=== PATIENT | male | born 1990 | race Caucasian/White ===

== ENCOUNTER 2022-04-24 08:24 | Emergency (ER) | payer OTHER ==
[~2022-04-24] VITALS: Ht 170 cm; Wt 62.0 kg
--- NOTE | 2022-04-24 09:09 | ED Abdominal Pain ---
General Chief Complaint: Abdominal/GI Problems Stated Complaint: NAUSEA/LOWER ABD PAIN Nursing Triage Note: PT CO OF R LOWER ABD PAIN FOR APPROX 2 WEEKS, PT STATES HAS INGUINAL HERNIAS X2. PT STATES ALSO HAS FREQUENT KIDNEY STONES PASSED SOME LAST WEEK. PT STATES HAS NAUSEA AND CONSTIPATION Source of Information: Patient Exam Limitations: No Limitations History of Present Illness Date Seen by Provider: Apr 24, 2022 Time Seen by Provider: 09:08 Initial Comments Patient is a 31-year-old male who presents to the emergency room with a chief complaint of "my hernias are hurting me". He states he has had pain in the suprapubic region for about the last week. He has not taken any medications voluntarily, his gave him some Tylenol last night which did not help. He also complains of constipation. He states he has not had a "good" bowel movement in the last week. No blood. No burning with urination, no penile discharge. No testicular pain. The pain does not radiate. 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 He states [place] and had previously been told that he had hernias. He states he has had ultrasounds and has been examined by a surgeon. No local care. No abdominal surgeries. He has been a little bit nauseous. All other review of systems reviewed and negative except as stated. Timing/Duration: 1 Week Severity/Quality: Moderate, Aching Location: Suprapubic Radiation: No Radiation Associated Symptoms: Other (constipation) Allergies and Home Medications Allergies Coded Allergies: No Known Drug Allergies (Unverified , 04/24/22) Patient Home Medication List Home Medication List Reviewed: Yes Review of Systems Review of Systems Constitutional: see HPI Respiratory: No Symptoms Reported Cardiovascular: No Symptoms Reported Gastrointestinal: Abdominal Pain, Constipated, Nausea Genitourinary: No Symptoms Reported Musculoskeletal: no symptoms reported Skin: no symptoms reported Psychiatric/Neurological: No Symptoms Reported All Other Systems Reviewed Negative Unless Noted: Yes Physical Exam Vital Signs Vital Signs - First Documented 04/24/22 08:40 Temp 36.6 Pulse 66 Resp 18 B/P (MAP) 103/70 (81) Pulse Ox 98 Capillary Refill : Less Than 3 Seconds Height/Weight/BMI Height: '" Weight: lbs. oz. kg; 21.00 BMI Method: General Appearance: WD/WN, thin Respiratory: lungs clear, normal breath sounds, no respiratory distress, no accessory muscle use Cardiovascular: regular rate, rhythm Gastrointestinal: soft, tenderness (Mild suprapubic tenderness, no inguinal lymphadenopathy, no palpable masses in the inguinal canals bilaterally.) Genital/Rectal: other (Patient is examined in the standing position. No testicular swelling, tenderness or fullness. No palpable direct inguinal hernias on either side. No penile discharge. No lesions, rashes) Extremities: normal range of motion, non-tender, normal inspection, no pedal edema Male: normal genitalia Neurologic/Psychiatric: alert, normal mood/affect, oriented x 3 Skin: normal color, warm/dry Progress/Results/Core Measures Results/Orders Lab Results Laboratory Tests Test 04/24/22 08:48 Range/Units Urine Color YELLOW Urine Clarity CLEAR Urine pH 6.5 5-9 Urine Specific [place] 1.010 L 1.016-1.022 Urine Protein NEGATIVE NEGATIVE Urine Glucose (UA) NEGATIVE NEGATIVE Urine Ketones NEGATIVE NEGATIVE Urine Nitrite NEGATIVE NEGATIVE Urine Bilirubin NEGATIVE NEGATIVE Urine Urobilinogen 0.2 < = 1.0 MG/DL Urine Leukocyte Esterase NEGATIVE NEGATIVE Urine RBC (Auto) 3+ H NEGATIVE Urine RBC 25-50 H /HPF Urine WBC 0-2 /HPF Urine Squamous Epithelial Cells RARE /HPF Urine Crystals NONE /LPF Urine Bacteria TRACE /HPF Urine Casts NONE /LPF Urine Mucus NEGATIVE /LPF Urine Culture Indicated NO My Orders Orders - HAY SCHUSTER MD Ua Culture If Indicated (04/24/22 09:24) Ketorolac Injection (Toradol Injection) (04/24/22 09:30) Medications Given in ED Current Medications Medications Dose Ordered Sig/Fernanda Route Start Time Stop Time Status Last Admin Dose Admin Ketorolac Tromethamine 30 mg ONCE ONCE IM 04/24/22 09:30 04/24/22 09:31 DC 04/24/22 09:35 30 MG Vital Signs/I&O 04/24/22 08:40 Temp 36.6 Pulse 66 Resp 18 B/P (MAP) 103/70 (81) Pulse Ox 98 Blood Pressure Mean: 81 Progress Progress Note : Time: 10:29 Progress Note Patient reassessed, pain down to a "4" after Toradol. He does have hematuria. Patient states he has a history of kidney stones, he thinks he passed 1 last week because he states that he heard 1 "hit the toilet". The last time he has had an evaluation for kidney stone has been "years ago". I offered him a couple of options, stay and get some blood chemistries checked as well as a CT of the abdomen and pelvis to look for where the kidney stone might be or treat him as renal colic with pain meds, Flomax and reevaluate him with his primary care. Patient elects to go home as he is worked all night. He states his pain is tolerable. No clinical or objective findings to warrant emergent continued eval here in the emergency department. He is given good return precautions. His vital signs are stable. He verbalized agreement with the plan of care. All questions are sought and answered. Patient is stable for discharge. Departure Impression Primary Impression: Hematuria Qualified Codes: R31.9 - Hematuria, unspecified Additional Impressions: Abdominal pain Qualified Codes: R10.9 - Unspecified abdominal pain History of kidney stones Disposition: HOME, SELF-CARE Condition: Stable Departure-Patient Inst. Decision time for Depature: 10:31 Referrals: [facility]/DARREL SCHMIDT,LOCAL PHYSICIAN (PCP) Primary Care Physician Patient Instructions: Renal Colic (DC) Add. Discharge Instructions: Drink plenty of fluids to stay well-hydrated. Take mhtp-ded-lwhgfsh ibuprofen 3 tablets which is 600 mg every 6 hours with food as needed for pain. Flomax 0.4 mg every night to help urinary flow. Hydrocodone 5 mg 1 every 6 hours as needed for more severe pain. If you have to take hydrocodone routinely you need to be on a stool softener daily as it can cause severe constipation. Do not drive and take hydrocodone. If you develop a fever, nausea vomiting, burning with urination or worsening pain please come back to the emergency department for reevaluation. Please follow-up with [facility]. Scripts Hydrocodone/Acetaminophen (Hydrocodone-Acetamin 5-325 mg) 5 Mg-325 Mg Tablet 1 TAB PO Q6H PRN for PAIN-MODERATE (5-7), #10 TAB Prov: HAY SCHUSTER MD 04/24/22 Tamsulosin HCl (Flomax) 0.4 Mg Cap 0.4 MG PO HS for 14 Days, #14 CAP Prov: HAY SCHUSTER MD 04/24/22 Work/School Note: Work Release Form Date Seen in the Emergency Department: Apr 24, 2022 Return to Work: Apr 25, 2022 Copy Copies To 1: RICHARD MARISCAL KATHRYN M MD Apr 24, 2022 09:08
[2022-04-24] MEDS ORDERED: KETOROLAC 30 MG/ML VIAL IM ONE (09:30)
[2022-04-24 09:31] LABS: BILIRUBIN,URINE NEGATIVE (NEGATIVE); CLARITY,URINE CLEAR; COLOR,URINE YELLOW; GLUCOSE, URINE (UA) NEGATIVE (NEGATIVE); KETONES,URINE NEGATIVE (NEGATIVE); LEUKOCYTE ESTERASE ,URINE NEGATIVE (NEGATIVE); NITRITE,URINE NEGATIVE (NEGATIVE); PH,URINE 6.5 (5-9); PROTEIN,URINE NEGATIVE (NEGATIVE)
[2022-04-24 09:39] LABS: BACTERIA,URINE TRACE /HPF; RBC,URINE 25-50 /HPF; SQUAMOUS EPITHELIAL CELL,UR RARE /HPF; WBC,URINE 0-2 /HPF
[2022-04-24] MEDS ORDERED: TMSL.4C PO (10:33)
[2022-04-24] MEDS ORDERED: ACHD5005 PO (10:33)
[2022-04-24 11:05] VITALS: BP 108/71
== END 2022-04-24 11:06 | disposition home or self-care (01) ==
LOC: ER 08:27
DX: R31.9 Hematuria, unspecified (principal); R10.31 Right lower quadrant pain; Z87.442 Personal history of urinary calculi
CPT/HCPCS: 81000; 99284

== ENCOUNTER 2022-12-13 08:43 | Emergency (ER) | payer SELFPAY ==
[~2022-12-13] VITALS: Ht 170 cm; Wt 62.0 kg
[~2022-12-13 08:43] MED LIST: ACHD5005 PO; TMSL.4C PO
[2022-12-13 08:56] VITALS: BP 124/79
--- NOTE | 2022-12-13 09:15 | ED General ---
General Chief Complaint: Abdominal/GI Problems Stated Complaint: HERNIA | ABD PAIN Nursing Triage Note: PT AMB TO RM 6 CO OF R LOWER ABD PAIN. PT STATES HAS HERNIA IN AREA RATES PAIN 5/10. STATES HAS SOME NAUSEA. DENIES PROBLEMS W BOWELS OR BLADDER. Source of Information: Patient Exam Limitations: No Limitations History of Present Illness Date Seen by Provider: Dec 13, 2022 Time Seen by Provider: 09:04 Allergies and Home Medications Allergies Coded Allergies: No Known Drug Allergies (Unverified , 04/24/22) Patient Home Medication List Hydrocodone/Acetaminophen (Hydrocodone-Acetamin 5-325 mg) 5 Mg-325 Mg Tablet, 1 TAB PO Q6H PRN for PAIN-MODERATE (5-7) Prescribed by: HAY SCHUSTER on 04/24/22 1034 Tamsulosin HCl (Flomax) 0.4 Mg Cap, 0.4 MG PO HS Prescribed by: HAY SCHUSTER on 04/24/22 1033 Past Husaewn-Fpybmf-Dthkgj Hx Patient Social History Tobacco Use?: Yes Tobacco type used: Cigarettes Smoking Status: Current Everyday Smoker Substance use?: No Alcohol Use?: No Pt feels they are or have been: No Immunizations Up To Date First/Initial COVID19 Vaccinat: MODERNA Second COVID19 Vaccination Mykel: MODERNA Third COVID19 Vaccination Date: Past Medical History Surgery/Hospitalization HX: KIDNEY STONES Physical Exam Vital Signs Vital Signs - First Documented 12/13/22 08:56 Temp 35.7 Pulse 58 Resp 20 B/P (MAP) 124/79 (94) Pulse Ox 100 Capillary Refill : Less Than 3 Seconds Height, Weight, BMI Height: '" Weight: lbs. oz. kg; 21.00 BMI Method: Progress/Results/Core Measures Suspected Sepsis SIRS Temperature: Pulse: 58 Respiratory Rate: 20 Blood Pressure 124 /79 Mean: 94 Results/Orders Lab Results Laboratory Tests Test 12/13/22 09:15 Range/Units Urine Color YELLOW Urine Clarity CLEAR Urine pH 7.0 5-9 Urine Specific [place] 1.010 L 1.016-1.022 Urine Protein NEGATIVE NEGATIVE Urine Glucose (UA) NEGATIVE NEGATIVE Urine Ketones NEGATIVE NEGATIVE Urine Nitrite NEGATIVE NEGATIVE Urine Bilirubin NEGATIVE NEGATIVE Urine Urobilinogen 0.2 < = 1.0 MG/DL Urine Leukocyte Esterase NEGATIVE NEGATIVE Urine RBC (Auto) NEGATIVE NEGATIVE Urine RBC NONE /HPF Urine WBC NONE /HPF Urine Crystals NONE /LPF Urine Bacteria NEGATIVE /HPF Urine Casts NONE /LPF Urine Mucus NEGATIVE /LPF Urine Culture Indicated NO My Orders Orders - CONSTANCE VILLARREAL MD Ua Culture If Indicated (12/13/22 09:12) Abdomen, Flat & Upright/Decub (12/13/22 09:12) Vital Signs/I&O 12/13/22 08:56 Temp 35.7 Pulse 58 Resp 20 B/P (MAP) 124/79 (94) Pulse Ox 100 Capillary Refill : Less Than 3 Seconds Blood Pressure Mean: 94 Departure Impression Primary Impression: Abdominal discomfort Additional Impression: Nausea Disposition: 01 HOME, SELF-CARE Condition: Improved Departure-Patient Inst. Decision time for Depature: 12:01 Referrals: NO,LOCAL PHYSICIAN (PCP/Family) Primary Care Physician Patient Instructions: Abdominal Pain, Adult ED Add. Discharge Instructions: Drink plenty of clear liquids, especially water, to stay well-hydrated. For soreness you may take Tylenol (acetaminophen) and/or ibuprofen. Follow-up with your primary care provider if you continue to have concerning symptoms. Return to the emergency room if you have worsening symptoms despite following these instructions which may include vomiting, escalating pain, inability to produce bowel movements, fever, or other significant new or worsening problems. All discharge instructions reviewed with patient and/or family. Voiced understanding. Work/School Note: Work Release Form Return to Work: Dec 14, 2022 Restrictions: No Restrictions CONSTANCE VILLARREAL MD Dec 13, 2022 09:15
[2022-12-13 09:20] LABS: BILIRUBIN,URINE NEGATIVE (NEGATIVE); CLARITY,URINE CLEAR; COLOR,URINE YELLOW; GLUCOSE, URINE (UA) NEGATIVE (NEGATIVE); KETONES,URINE NEGATIVE (NEGATIVE); LEUKOCYTE ESTERASE ,URINE NEGATIVE (NEGATIVE); NITRITE,URINE NEGATIVE (NEGATIVE); PROTEIN,URINE NEGATIVE (NEGATIVE)
[2022-12-13 09:29] LABS: BACTERIA,URINE NEGATIVE /HPF
--- NOTE | 2022-12-13 09:56 | Diagnostic Imaging Report ---
CLINICAL INDICATIONS: Patient complains of a right lower abdominal pain, patient has some nausea. EXAM: X-ray of the abdomen with multiple supine and upright views. COMPARISON: None. FINDINGS: There is a nonobstructed bowel gas pattern. There is no evidence of abdominal free air. There is small amount of stool overlying the pelvis. There are no focal calcifications overlying the expected regions/ pathways of both kidneys, ureters, and bladder regions. The visualized bones and extra abdominal soft tissues are unremarkable. IMPRESSION: There is no radiographic evidence for acute abdominal/ pelvic process or urinary tract stones. Dictated by: Dictated on workstation # [id number]
== END 2022-12-13 12:18 | disposition home or self-care (01) ==
LOC: EDUNIT# 08:43 → ER 08:46
DX: R10.31 Right lower quadrant pain (principal); R11.0 Nausea; F17.210 Nicotine dependence, cigarettes, uncomplicated
CPT/HCPCS: 74019; 81000